=== PATIENT | female | born 1995 | race Caucasian/White ===

== ENCOUNTER 2018-08-02 18:44 | Emergency (ER) | payer BC ==
[2018-08-02 18:56] VITALS: BP 98/65; PULSE 78; TEMP 97.8; BMI 13.1
--- NOTE | 2018-08-02 19:22 | PDOC ---
History of Present Illness <Arvind Conteh S - Last Filed: 08/02/18 19:21> <Byron Alanis - Last Filed: 08/02/18 20:30> - General Chief Complaint: Revisit, Lab Variance Stated Complaint: LOW SODIUM LEVEL Time Seen by Provider: 08/02/18 19:21 Past History - Past Medical History COPD: No Psychiatric Problems: Yes (EATING DISORDER) - Suicide/Smoking/Psychosocial Hx Smoking History: Never smoked Hx Alcohol Use: No Drug/Substance Use Hx: No <Arvind Conteh - Last Filed: 08/02/18 19:21> <Byron Alanis - Last Filed: 08/02/18 20:30> - Past Medical History Allergies/Adverse Reactions: Allergies Allergy/AdvReac Type Severity Reaction Status Date / Time No Known Allergies Allergy Verified 08/02/18 18:50 Home Medications: Ambulatory Orders NK [No Known Home Medication] 08/02/18 *Physical Exam - Vital Signs Last Vital Signs Temp Pulse Resp BP Pulse Ox 97.8 F 78 16 98/65 100 08/02/18 18:49 08/02/18 18:49 08/02/18 18:49 08/02/18 18:49 08/02/18 18:49 <Arvind Conteh S - Last Filed: 08/02/18 19:21> - Vital Signs Last Vital Signs Temp Pulse Resp BP Pulse Ox 97.8 F 78 16 98/65 100 08/02/18 18:49 08/02/18 18:49 08/02/18 18:49 08/02/18 18:49 08/02/18 18:49 <Byron Alanis - Last Filed: 08/02/18 20:30> Moderate Sedation - Procedure Monitoring Vital Signs: Procedure Monitoring Vital Signs Temperature 97.8 F 08/02/18 18:49 Pulse Rate 78 08/02/18 18:49 Respiratory Rate 16 08/02/18 18:49 Blood Pressure 98/65 08/02/18 18:49 O2 Sat by Pulse Oximetry (%) 100 08/02/18 18:49 <Arvind Conteh S - Last Filed: 08/02/18 19:21> - Procedure Monitoring Vital Signs: Procedure Monitoring Vital Signs Temperature 97.8 F 08/02/18 18:49 Pulse Rate 78 08/02/18 18:49 Respiratory Rate 16 08/02/18 18:49 Blood Pressure 98/65 08/02/18 18:49 O2 Sat by Pulse Oximetry (%) 100 08/02/18 18:49 <Byron Alanis - Last Filed: 08/02/18 20:30> ED Treatment Course - LABORATORY CBC & Chemistry Diagram: 08/02/18 19:30 - ADDITIONAL ORDERS Additional order review: Laboratory Results 08/02/18 08/02/18 19:30 19:30 Sodium 133 L Potassium 3.6 Chloride 101 Carbon Dioxide 29 H Anion Gap 3 L BUN 22 H Creatinine 0.6 Creat Clearance w eGFR > 60 Random Glucose 95 D Calcium 9.1 Phosphorus 2.8 D Magnesium 1.9 Ur Random Sodium 28 Urine Creatinine 11.0 L <Byron Alanis - Last Filed: 08/02/18 20:30> *DC/Admit/Observation/Transfer <Arvind Conteh - Last Filed: 08/02/18 19:21> <Byron Alanis - Last Filed: 08/02/18 20:30> Diagnosis at time of Disposition: Hyponatremia - Discharge Dispostion Disposition: HOME Condition at time of disposition: Good - Referrals Referrals: Cristina Camacho NP [Primary Care Provider] - Call tomorrow - Patient Instructions - Post Discharge Activity
[2018-08-02 20:24] LABS: ANION GAP 3 MMOL/L (8-16); BLOOD UREA NITROGEN 22 mg/dl (7-18); CALCIUM 9.1 mg/dl (8.4-10.2); CHLORIDE 101 mmol/L (98-107); CO2 29 mmol/L (22-28); CREATININE 0.6 mg/dl (0.6-1.3); GLUCOSE,RANDOM 95 mg/dl (74-106); MAGNESIUM 1.9 mg/dL (1.8-2.4); PHOSPHOROUS 2.8 mg/dl (2.5-4.6); POTASSIUM 3.6 mmol/L (3.5-5.1); SODIUM 133 mmol/L (136-145)
--- NOTE | 2018-08-02 20:38 | PDOC ---
History of Present Illness - General History Source: Patient Exam Limitations: No Limitations - History of Present Illness Initial Comments: 08/02/18 20:39 The patient is a 22 year old female, with a significant past medical history of , who presents to the ED complaining of abnormal electrolytes today. Including low sodium (131), low potassium (3.4) and low phosphorus (2.3). The patient is being sent over from the [facility] clinic for anorexia and severe malnutrition. It is noted that she is currently being refed over the last couple of days. Dr. Alanis spoke to the supervision WIND UP OPERATOR, Cristina Camacho who asked us to recheck the blood and treat the patient with IV fluid if numbers are low Allergies: None Past surgical history: None reported Social History: No alcohol, tobacco or drug use reported WIND UP OPERATOR: Cristina Camacho <Mazin Falcon - Last Filed: 08/02/18 20:39> <Byron Alanis - Last Filed: 08/03/18 03:11> - General Chief Complaint: Revisit, Lab Variance Stated Complaint: LOW SODIUM LEVEL Time Seen by Provider: 08/02/18 19:21 Past History <Mazin Falcon - Last Filed: 08/02/18 20:39> - Past Medical History COPD: No Psychiatric Problems: Yes (EATING DISORDER) - Suicide/Smoking/Psychosocial Hx Smoking History: Never smoked Hx Alcohol Use: No Drug/Substance Use Hx: No <Byron Alanis - Last Filed: 08/03/18 03:11> - Past Medical History Allergies/Adverse Reactions: Allergies Allergy/AdvReac Type Severity Reaction Status Date / Time No Known Allergies Allergy Verified 08/02/18 18:50 Home Medications: Ambulatory Orders NK [No Known Home Medication] 08/02/18 Review of Systems - Review of Systems Able to Perform ROS?: Yes Comments:: 08/02/18 20:39 GENERAL/CONSTITUTIONAL: No fever or chills. No weakness. HEAD, EYES, EARS, NOSE AND THROAT: No change in vision. No ear pain or discharge. No sore throat. GASTROINTESTINAL: No nausea, vomiting, diarrhea or constipation. GENITOURINARY: No dysuria, frequency, or change in urination. CARDIOVASCULAR: No chest pain or shortness of breath. RESPIRATORY: No cough, wheezing, or hemoptysis. MUSCULOSKELETAL: No joint or muscle swelling or pain. No neck or back pain. SKIN: No rash NEUROLOGIC: No headache, vertigo, loss of consciousness, or change in strength/ sensation. ENDOCRINE: No increased thirst. No abnormal weight change. HEMATOLOGIC/LYMPHATIC: No anemia, easy bleeding, or history of blood clots. ALLERGIC/IMMUNOLOGIC: No hives or skin allergy. <Mazin Falcon - Last Filed: 08/02/18 20:39> *Physical Exam - Vital Signs Last Vital Signs Temp Pulse Resp BP Pulse Ox 97.8 F 78 16 98/65 100 08/02/18 18:49 08/02/18 18:49 08/02/18 18:49 08/02/18 18:49 08/02/18 18:49 - Physical Exam Comments: 08/02/18 20:39 Constitutional: (+) Emaciated but normal. Head: Normocephalic. Atraumatic Eyes: PERRL. EOMI. Conjunctivae are not pale. ENT: Mucous membranes are moist and intact. Posterior pharynx without exudates or erythema. Uvula midline. Neck: Supple. Full ROM. No lymphadenopathy. Cardiovascular: Regular rate. Regular rhythm. S1, S2 regular. Distal pulses are 2+ and symmetric. Pulmonary/Chest: No evidence of respiratory distress. Clear to auscultation bilaterally No wheezing, rales or rhonchi. Abdominal: Soft and non-distended. There is no tenderness. No rebound, guarding or rigidity. No organomegaly. No palpable masses. Good bowel sounds. Back: No CVA tenderness. Musculoskeletal: No edema. No cyanosis. No clubbing. Full range of motion in all extremities. Nocalf tenderness. Radial/pedal pulses are intact and 2+ bilaterally Skin: Skin is warm and dry. No petechiae. No purpura. Neurological: Alert and oriented to person, place, and time. Cranial nerves II -XII are grossly intact. Normal speech. Strength is grossly symmetric. No sensory deficits. <Mazin Falcon - Last Filed: 08/02/18 20:39> - Vital Signs Last Vital Signs Temp Pulse Resp BP Pulse Ox 97.8 F 78 16 98/65 100 08/02/18 18:49 08/02/18 18:49 08/02/18 18:49 08/02/18 18:49 08/02/18 18:49 <Byron Alanis - Last Filed: 08/03/18 03:11> Moderate Sedation - Procedure Monitoring Vital Signs: Procedure Monitoring Vital Signs Temperature 97.8 F 08/02/18 18:49 Pulse Rate 78 08/02/18 18:49 Respiratory Rate 16 08/02/18 18:49 Blood Pressure 98/65 08/02/18 18:49 O2 Sat by Pulse Oximetry (%) 100 08/02/18 18:49 <Mazin Falcon - Last Filed: 08/02/18 20:39> - Procedure Monitoring Vital Signs: Procedure Monitoring Vital Signs Temperature 97.8 F 08/02/18 18:49 Pulse Rate 78 08/02/18 18:49 Respiratory Rate 16 08/02/18 18:49 Blood Pressure 98/65 08/02/18 18:49 O2 Sat by Pulse Oximetry (%) 100 08/02/18 18:49 <Byron Alanis - Last Filed: 08/03/18 03:11> ED Treatment Course - LABORATORY CBC & Chemistry Diagram: 08/02/18 19:30 - ADDITIONAL ORDERS Additional order review: Laboratory Results 08/02/18 08/02/18 19:30 19:30 Sodium 133 L Potassium 3.6 Chloride 101 Carbon Dioxide 29 H Anion Gap 3 L BUN 22 H Creatinine 0.6 Creat Clearance w eGFR > 60 Random Glucose 95 D Calcium 9.1 Phosphorus 2.8 D Magnesium 1.9 Ur Random Sodium 28 Urine Creatinine 11.0 L <Mazin Falcon - Last Filed: 08/02/18 20:39> - LABORATORY CBC & Chemistry Diagram: 08/02/18 19:30 - ADDITIONAL ORDERS Additional order review: Laboratory Results 08/02/18 08/02/18 19:30 19:30 Sodium 133 L Potassium 3.6 Chloride 101 Carbon Dioxide 29 H Anion Gap 3 L BUN 22 H Creatinine 0.6 Creat Clearance w eGFR > 60 Random Glucose 95 D Calcium 9.1 Phosphorus 2.8 D Magnesium 1.9 Ur Random Sodium 28 Urine Creatinine 11.0 L <Byron Alanis - Last Filed: 08/03/18 03:11> Medical Decision Making - Medical Decision Making 08/03/18 03:11 labs normalized encouraged table salt has fu <Byron Alanis - Last Filed: 08/03/18 03:11> *DC/Admit/Observation/Transfer - Attestations Scribe Attestion: 08/02/18 20:40 Documentation prepared by Mazin Falcon, acting as medical device sales representative for Byron Alanis MD <Mazin Falcon - Last Filed: 08/02/18 20:39> <Byron Alanis - Last Filed: 08/03/18 03:11> Diagnosis at time of Disposition: Hyponatremia - Discharge Dispostion Disposition: HOME Condition at time of disposition: Good - Referrals Referrals: Cristina Camacho NP [Primary Care Provider] - Call tomorrow - Patient Instructions - Post Discharge Activity
== END 2018-08-02 20:35 | disposition home or self-care (01) ==
LOC: FER 18:44
DX: E87.1 Hypo-osmolality and hyponatremia (principal); F50.9 Eating disorder, unspecified
CPT/HCPCS: 36415; 80048; 82570; 83735; 84100; 84300; 99281-25